=== PATIENT | female | born 1955 | race Caucasian/White ===

== ENCOUNTER → 2018-02-13 | Outpatient (CLI) | payer MEDICAID | LOC: M.RAD 09:39 | DX: Z12.31 Encounter for screening mammogram for malignant neoplasm of breast (principal) ==

== ENCOUNTER → 2018-02-22 | Outpatient (CLI) | payer MEDICAID, MEDICARE | LOC: M.RAD 02-16 14:56 | DX: R92.8 Other abnormal and inconclusive findings on diagnostic imaging of breast (principal) ==

== ENCOUNTER → 2018-08-13 | Outpatient (CLI) | payer MEDICAID, MEDICARE | LOC: M.RAD 08-08 09:29 | DX: R92.1 Mammographic calcification found on diagnostic imaging of breast (principal) ==

== ENCOUNTER → 2019-03-22 | Outpatient (CLI) | payer MEDICARE, MEDICAID | LOC: M.RAD 08:30 | DX: R92.1 Mammographic calcification found on diagnostic imaging of breast (principal) ==

== ENCOUNTER 2021-10-25 12:39 | Inpatient (IN) | payer MEDICARE, MEDICAID ==
[~2021-10-25] VITALS: Ht 154.9 cm; Wt 101.4 kg
[2021-10-25 12:45] VITALS: BP 139/84
[2021-10-25] MEDS ORDERED: LISINOPRIL10 MG PO (12:50)
[2021-10-25] MEDS ORDERED: SERTRALINE HCL100 MG PO (12:50)
[2021-10-25] MEDS ORDERED: MELOXICAM7.5 MG PO (12:50)
[2021-10-25 13:57] LABS: ABSOLUTE MONOCYTES 0.4 thou/uL (0.0-1.2); ABSOLUTE NEUTROPHILS 3.3 thou/uL (1.6-8.1); BASOPHILS 0.5 %; HEMATOCRIT 45.4 % (37.0-47.0); HEMOGLOBIN 15.4 gm/dL (12.0-15.0); LYMPHOCYTES 20.4 %; MCH 28.9 pg (26.0-34.0); MCV 85.2 fL (80.0-100.0); MONOCYTES 9.3 %; MPV 8.5 fl. (7.2-11.1); NUCLEATED RBCS 0 /100WBC; PLATELET COUNT* 152 thou/uL (150-400); POLYS 69.8 %; RBC 5.33 mil/uL (4.20-5.00); RDW-CV 14.2 % (10.5-14.5); WBC 4.7 thou/uL (4.0-11.0)
[2021-10-25 14:06] LABS: CALCIUM 9.2 mg/dL (8.5-10.1); CREATININE 0.9 mg/dL (0.6-1.3); POTASSIUM 3.8 mmol/L (3.5-5.1)
[2021-10-25 14:11] LABS: ALBUMIN 3.7 g/dL (3.4-5.0); TOTAL BILIRUBIN 0.7 mg/dL (<0.1-1.0); TOTAL PROTEIN 7.9 g/dL (6.4-8.2)
--- NOTE | 2021-10-25 15:41 | EKG ---
[place] [address] ELECTROCARDIOGRAM REPORT Name: VESTA RAM Room: [facility]#: [id number] Admission: 10/25/21 Attend Phys: Discharge: Date of : 53 Date of Service: 10/25/21 1421 Report #: [id number] THIS REPORT FOR: //name// [facility] ED Test Date: 2021-10-25 Test Time: 14:21:28 Pat Name: VESTA RAM Department: Room: Gender: F Clerk Manager: : 1955 Requested By: Betito Patino Order Number: [id number] MD: Ramin Welch Measurements Intervals [place] Rate: 93 P: 36 NM: 140 QRS: 21 QRSD: 106 T: 33 QT: 365 QTc: 454 Interpretive Statements Sinus rhythm Probable left atrial enlargement RSR' in V1 or V2, right VCD No previous ECG available for comparison Electronically Signed On 10-25-2021 15:41:06 QUALITY IMPROVEMENT CONSULTANT by Ramin Welch [email or web address] <ELECTRONICALLY SIGNED> By: Ramin Welch MD, [facility] 10/25/21 1541 142 142 Ramin Welch MD, FAC /EPI
[2021-10-25 16:32] LABS: URINE BLOOD TRACE (Negative); URINE CLARITY CLEAR; URINE COLOR YELLOW; URINE GLUCOSE-RANDOM NEGATIVE (Negative); URINE KETONES 2+ (Negative); URINE LEUKOCYTES-REFLEX NEGATIVE (Negative); URINE NITRITE-REFLEX NEGATIVE (Negative); URINE PROTEIN TRACE (Negative); URINE SPECIFIC GRAVITY >= 1.030 (1.005-1.030); URINE UROBILINOGEN 0.2 E.U./dl (0.2-1.0)
[2021-10-25 16:34] LABS: ICTOTEST (BILI CONFIRMATORY) Negative (Negative); URINE BILIRUBIN 1+ (Negative)
[2021-10-25 17:35] LABS: INFLUENZA A ANTIGEN Negative (Negative); INFLUENZA B ANTIGEN Negative (Negative)
[2021-10-25 20:30] VITALS: BP 125/65
[2021-10-26] VITALS (9 sets, daily range): BP systolic 106–161; BP diastolic 56–89
[2021-10-26 05:44] LABS: ABSOLUTE LYMPHOCYTES 0.8 thou/uL (0.8-5.3); ABSOLUTE MONOCYTES 0.3 thou/uL (0.0-1.2); ABSOLUTE NEUTROPHILS 2.1 thou/uL (1.6-8.1); BASOPHILS 0.6 %; HEMATOCRIT 40.8 % (37.0-47.0); LYMPHOCYTES 25.9 %; MCH 28.4 pg (26.0-34.0); MCHC 32.8 g/dL (28.0-37.0); MCV 86.4 fL (80.0-100.0); MPV 7.9 fl. (7.2-11.1); NUCLEATED RBCS 0 /100WBC; PLATELET COUNT* 126 thou/uL (150-400); POLYS 64.5 %; RBC 4.73 mil/uL (4.20-5.00); RDW-CV 14.3 % (10.5-14.5); WBC 3.2 thou/uL (4.0-11.0)
[2021-10-26 05:49] LABS: HEMOGLOBIN 13.4 gm/dL (12.0-15.0)
[2021-10-26 06:30] LABS: CALCIUM 8.5 mg/dL (8.5-10.1); CREATININE 0.8 mg/dL (0.6-1.3); POTASSIUM 3.6 mmol/L (3.5-5.1)
[2021-10-26] MEDS ORDERED: PRAVACHOL 20 MG20 M1 PO (10:28)
[2021-10-27 03:49] VITALS: BP 128/67
[2021-10-27 04:40] LABS: ABSOLUTE LYMPHOCYTES 0.8 thou/uL (0.8-5.3); ABSOLUTE MONOCYTES 0.3 thou/uL (0.0-1.2); ABSOLUTE NEUTROPHILS 3.6 thou/uL (1.6-8.1); BASOPHILS 0.4 %; HEMOGLOBIN 12.9 gm/dL (12.0-15.0); LYMPHOCYTES 17.3 %; MCH 28.5 pg (26.0-34.0); MCHC 33.9 g/dL (28.0-37.0); MCV 83.9 fL (80.0-100.0); MONOCYTES 7.1 %; MPV 8.4 fl. (7.2-11.1); NUCLEATED RBCS 0 /100WBC; PLATELET COUNT* 161 thou/uL (150-400); POLYS 75.2 %; RBC 4.53 mil/uL (4.20-5.00); RDW-CV 13.9 % (10.5-14.5); WBC 4.7 thou/uL (4.0-11.0)
[2021-10-27 05:09] LABS: ALBUMIN 2.6 g/dL (3.4-5.0); CALCIUM 8.7 mg/dL (8.5-10.1); CREATININE 0.7 mg/dL (0.6-1.3); POTASSIUM 3.4 mmol/L (3.5-5.1); TOTAL BILIRUBIN 0.3 mg/dL (<0.1-1.0); TOTAL PROTEIN 5.9 g/dL (6.4-8.2)
[2021-10-27 08:16] VITALS: BP 136/61
[2021-10-27 13:03] VITALS: BP 135/64
[2021-10-27 16:00] VITALS: BP 151/78
[2021-10-27 20:15] VITALS: BP 150/83
[2021-10-27 23:58] VITALS: BP 143/83
[2021-10-28 12:00] VITALS: BP 143/79
[2021-10-28 12:43] LABS: BE 3.3 mmol/L (-2 to +3); PCO2 48.4 mmHg (35.0-45.0); PO2 80.2 mmHg (75.0-100.0); pH 7.398 (7.340-7.450)
[2021-10-28 16:00] VITALS: BP 149/81
[2021-10-28 21:00] VITALS: BP 139/79
[2021-10-29] VITALS: BP 151/84
--- NOTE | 2021-10-29 00:39 | CON ---
[address] [address] CONSULTATION Name: VESTA RAM Room: [address] IN M.R.#: [id number] Admission: 10/25/21 Attend Phys: Hal Chung MD Discharge: Date of : 53 Report #: [id number] THIS REPORT FOR: cc: Cindy Shanks Mischelle RNP Pervez, Adeel MD ~ DATE OF CONSULTATION: 10/28/2021 Consult has been requested by Dr. Brownlee. INDICATION FOR CONSULTATION: Acute hypoxemic respiratory failure secondary to COVID-19, consult requested by Dr. Brownlee. HISTORY OF PRESENT ILLNESS: A 65-year-old female. She does have a history of morbid obesity, body mass index is 44. The patient, however, has not previously diagnosed with a cardiac or respiratory disease other than she does have hypertension as well as hyperlipidemia. The patient is not vaccinated for COVID-19. At this time, the patient is here with COVID-19, there has been a progressive increase in her oxygen needs. Upon admission, she was maintaining O2 saturation on 2 liters nasal cannula, although she was hypoxemic on room air. The patient currently is on BiPAP with 100% FiO2. She has been able to take it off for short periods of time to be able to eat, but otherwise is primarily BiPAP dependent. She is maintaining O2 saturation in the low 90s when she is on the BiPAP. When off the BiPAP, O2 saturations of variable at times maintained in the 90s and at other times desaturation up to the upper 70s have been noted. The patient currently is on BiPAP and is not able to provide a detailed history or review of systems. PAST MEDICAL HISTORY: Hypertension, hyperlipidemia, arthritis. [facility]. [facility] MED[facility]S: [facility]. ALLERGIES: No known drug allergies. FAMILY HISTORY: No pertinent family history. SOCIAL HISTORY: No known history of smoking, ethanol abuse or drug abuse. VACCINATION HISTORY: She has not been vaccinated for COVID-19. PHYSICAL EXAMINATION: [place] [address] CONSULTATION Name: VESTA RAM Room: [address] IN [facility]#: [id number] Admission: 10/25/21 Attend Phys: Hal Chung MD Discharge: Date of : 53 Report #: [id number] GENERAL: She is alert, awake and oriented; however, communication is limited due to BiPAP in place. VITAL SIGNS: Vitals in the records reviewed. BiPAP settings in [facility] reviewed. HEENT: Head is normocephalic and atraumatic. BiPAP in place. NECK: Does not show raised JVP. CHEST: Breath sounds are bilaterally equal. No added sound. Tachypnea noted. HEART: Regular. No murmur. ABDOMEN: Soft and nontender. EXTREMITIES: Lower extremities, trace edema, no calf tenderness. NEUROLOGICAL: No focal deficit. LABORATORY DATA: The patient's chest x-ray as well as x-rays as well as lab work is in [facility] and is reviewed. ASSESSMENT/PLAN: 1. Acute hypoxemic and hypercarbic respiratory failure. BiPAP settings adjusted. We will continue while asleep as well as p.r.n., currently needing while awake as well. If she fails to improve, then she may need intubation; however, we will at this time, attempt to avoid. 2. COVID-19. I increased the dose of dexamethasone to 10 b.i.d. Recommended increase in duration of remdesivir to 10 days, watch LFTs. We will also give one dose of Actemra earlier today. 3. Fluid overload. Recommend diuresing her potassium is 3.4 from yesterday. I went ahead and ordered 40 of Lasix with 100 of Aldactone and also 40 of potassium. We will reassess tomorrow and consider more diuresis. 4. Pulmonary infiltrates. Agree with doxycycline. We will add cefepime. We will do a procalcitonin. We will do sputum culture and nasal swab for MRSA. 5. Bronchospasm. I doubt that she is able to use albuterol inhaler correctly switched over to DuoNeb and also steroid as above. 6. Blood glucose monitoring, the same is ordered with an insulin sliding scale. 7. Deep venous thrombosis prophylaxis. She is on Lovenox low dose, I will increase it to intermediate dose. D-dimer is not significantly elevated, but we will follow trend. 8. Gastrointestinal prophylaxis. She is on Protonix as well as Pepcid. If the only indication is gastrointestinal prophylaxis, then in that case, I recommend continuing Protonix and discontinuing Pepcid. 9. Clostridium difficile prophylaxis, Lactinex. [address] [address] CONSULTATION Name: VESTA RAM Room: [address] IN [place].#: [id number] Admission: 10/25/21 Attend Phys: Hal Chung MD Discharge: Date of : 53 Report #: [id number] The patient is critically ill at this time. Total time spent providing critical care to this patient today exceeds 41 minutes. <ELECTRONICALLY SIGNED> By: Adalid Johnston MD 10/29/21 0039 1725 1959Aalycia Johnston MD /nt
[2021-10-29 04:00] VITALS: BP 144/82
[2021-10-29 05:43] LABS: HEMATOCRIT 40.4 % (37.0-47.0); HEMOGLOBIN 13.7 gm/dL (12.0-15.0); MCH 28.6 pg (26.0-34.0); MCV 84.2 fL (80.0-100.0); MPV 7.7 fl. (7.2-11.1); NUCLEATED RBCS 0 /100WBC; PLATELET COUNT* 216 thou/uL (150-400); RDW-CV 13.8 % (10.5-14.5); WBC 6.3 thou/uL (4.0-11.0)
[2021-10-29 06:56] LABS: ABSOLUTE LYMPHOCYTES 0.5 thou/uL (0.8-5.3); ABSOLUTE MONOCYTES 0.3 thou/uL (0.0-1.2); ABSOLUTE NEUTROPHILS 5.5 thou/uL (1.6-8.1)
[2021-10-29 06:57] LABS: PLATELET ESTIMATE ADEQUATE
[2021-10-29 07:47] LABS: ALBUMIN 2.5 g/dL (3.4-5.0); CALCIUM 9.2 mg/dL (8.5-10.1); CREATININE 0.7 mg/dL (0.6-1.3); MAGNESIUM 2.1 mg/dL (1.8-2.4); POTASSIUM 4.3 mmol/L (3.5-5.1); TOTAL BILIRUBIN 0.5 mg/dL (<0.1-1.0); TOTAL PROTEIN 6.3 g/dL (6.4-8.2)
[2021-10-29 08:00] VITALS: BP 138/78
[2021-10-29 12:00] VITALS: BP 150/74
[2021-10-29 16:00] VITALS: BP 136/72
[2021-10-29 22:20] VITALS: BP 140/76
[2021-10-30] VITALS: BP 134/77
[2021-10-30 04:00] VITALS: BP 132/68
[2021-10-30 08:10] VITALS: BP 113/71
[2021-10-30 11:30] VITALS: BP 112/65
[2021-10-30 11:47] LABS: ABSOLUTE LYMPHOCYTES 0.7 thou/uL (0.8-5.3); ABSOLUTE MONOCYTES 0.5 thou/uL (0.0-1.2); ABSOLUTE NEUTROPHILS 10.1 thou/uL (1.6-8.1); BASOPHILS 0.1 %; HEMATOCRIT 41.4 % (37.0-47.0); HEMOGLOBIN 13.6 gm/dL (12.0-15.0); LYMPHOCYTES 5.9 %; MCH 28.3 pg (26.0-34.0); MCHC 32.8 g/dL (28.0-37.0); MCV 86.3 fL (80.0-100.0); MPV 8.1 fl. (7.2-11.1); NUCLEATED RBCS 0 /100WBC; RBC 4.79 mil/uL (4.20-5.00); RDW-CV 14.2 % (10.5-14.5); WBC 11.2 thou/uL (4.0-11.0)
[2021-10-30 12:03] LABS: PLATELET COUNT* 318 thou/uL (150-400)
[2021-10-30 12:08] LABS: ALBUMIN 2.6 g/dL (3.4-5.0); CALCIUM 9.4 mg/dL (8.5-10.1); CREATININE 0.9 mg/dL (0.6-1.3); MAGNESIUM 2.4 mg/dL (1.8-2.4); POTASSIUM 3.3 mmol/L (3.5-5.1); TOTAL BILIRUBIN 0.5 mg/dL (<0.1-1.0); TOTAL PROTEIN 6.2 g/dL (6.4-8.2)
[2021-10-30 19:00] VITALS: BP 134/75
[2021-10-30 20:00] VITALS: BP 128/72
[2021-10-31 00:19] VITALS: BP 149/75
[2021-10-31 04:35] VITALS: BP 143/78
[2021-10-31 08:07] VITALS: BP 133/74
[2021-10-31 11:16] LABS: ABSOLUTE LYMPHOCYTES 0.7 thou/uL (0.8-5.3); ABSOLUTE MONOCYTES 0.7 thou/uL (0.0-1.2); ABSOLUTE NEUTROPHILS 10.9 thou/uL (1.6-8.1); BASOPHILS 0.2 %; EOSINOPHILS 0.1 %; HEMATOCRIT 41.6 % (37.0-47.0); HEMOGLOBIN 13.6 gm/dL (12.0-15.0); LYMPHOCYTES 5.7 %; MCH 28.4 pg (26.0-34.0); MCHC 32.8 g/dL (28.0-37.0); MCV 86.4 fL (80.0-100.0); MPV 8.1 fl. (7.2-11.1); NUCLEATED RBCS 0 /100WBC; PLATELET COUNT* 327 thou/uL (150-400); RBC 4.81 mil/uL (4.20-5.00); RDW-CV 13.9 % (10.5-14.5); WBC 12.4 thou/uL (4.0-11.0)
[2021-10-31 11:35] LABS: ALBUMIN 2.8 g/dL (3.4-5.0); CALCIUM 9.4 mg/dL (8.5-10.1); CREATININE 0.9 mg/dL (0.6-1.3); MAGNESIUM 2.2 mg/dL (1.8-2.4); POTASSIUM 4.5 mmol/L (3.5-5.1); TOTAL BILIRUBIN 0.5 mg/dL (<0.1-1.0); TOTAL PROTEIN 5.9 g/dL (6.4-8.2)
[2021-10-31 13:24] VITALS: BP 111/59
[2021-10-31 16:33] VITALS: BP 138/74
[2021-10-31 21:50] VITALS: BP 126/77
[2021-11-01] VITALS (21 sets, daily range): BP systolic 11–1150; BP diastolic 30–85
[2021-11-01 04:29] LABS: HEMATOCRIT 45.1 % (37.0-47.0); MCH 28.4 pg (26.0-34.0); MCHC 33.3 g/dL (28.0-37.0); MCV 85.3 fL (80.0-100.0); MPV 7.9 fl. (7.2-11.1); NUCLEATED RBCS 0 /100WBC; PLATELET COUNT* 362 thou/uL (150-400); RBC 5.28 mil/uL (4.20-5.00); RDW-CV 13.6 % (10.5-14.5); WBC 15.3 thou/uL (4.0-11.0)
[2021-11-01 04:44] LABS: CALCIUM 9.7 mg/dL (8.5-10.1); CREATININE 0.9 mg/dL (0.6-1.3); MAGNESIUM 2.5 mg/dL (1.8-2.4); POTASSIUM 4.4 mmol/L (3.5-5.1); TOTAL BILIRUBIN 0.7 mg/dL (<0.1-1.0); TOTAL PROTEIN 6.7 g/dL (6.4-8.2)
[2021-11-01 07:11] LABS: ABSOLUTE LYMPHOCYTES 0.6 thou/uL (0.8-5.3); ABSOLUTE MONOCYTES 1.1 thou/uL (0.0-1.2); ABSOLUTE NEUTROPHILS 13.6 thou/uL (1.6-8.1)
[2021-11-01 07:12] LABS: PLATELET ESTIMATE ADEQUATE
[2021-11-01 08:57] LABS: BE 4.1 mmol/L (-2 to +3); PCO2 42.4 mmHg (35.0-45.0); pH 7.447 (7.340-7.450)
[2021-11-01 08:59] LABS: PO2 55.3 mmHg (75.0-100.0)
[2021-11-01 19:47] LABS: BE 2.4 mmol/L (-2 to +3); PCO2 47.5 mmHg (35.0-45.0); PO2 61.3 mmHg (75.0-100.0); pH 7.392 (7.340-7.450)
[2021-11-02] VITALS (47 sets, daily range): BP systolic 10–185; BP diastolic 47–92
[2021-11-02 04:31] LABS: HEMATOCRIT 47.2 % (37.0-47.0); HEMOGLOBIN 15.9 gm/dL (12.0-15.0); MCH 28.1 pg (26.0-34.0); MCHC 33.7 g/dL (28.0-37.0); MCV 83.5 fL (80.0-100.0); MPV 8.1 fl. (7.2-11.1); NUCLEATED RBCS 0 /100WBC; PLATELET COUNT* 435 thou/uL (150-400); RBC 5.66 mil/uL (4.20-5.00); RDW-CV 14.1 % (10.5-14.5); WBC 26.9 thou/uL (4.0-11.0)
[2021-11-02 05:15] LABS: CALCIUM 9.5 mg/dL (8.5-10.1); CREATININE 1.5 mg/dL (0.6-1.3); MAGNESIUM 2.5 mg/dL (1.8-2.4); POTASSIUM 4.2 mmol/L (3.5-5.1); TOTAL BILIRUBIN 0.9 mg/dL (<0.1-1.0); TOTAL PROTEIN 6.6 g/dL (6.4-8.2)
[2021-11-02 05:57] LABS: PHOSPHORUS* 5.8 mg/dL (2.5-4.9)
[2021-11-02 07:54] LABS: ABSOLUTE LYMPHOCYTES 1.9 thou/uL (0.8-5.3); ABSOLUTE MONOCYTES 0.3 thou/uL (0.0-1.2); ABSOLUTE NEUTROPHILS 24.7 thou/uL (1.6-8.1); PLATELET ESTIMATE ADEQUATE
[2021-11-02 09:05] LABS: BE -0.7 mmol/L (-2 to +3); PCO2 43.7 mmHg (35.0-45.0); PO2 87.8 mmHg (75.0-100.0); pH 7.372 (7.340-7.450)
[2021-11-02 17:30] LABS: CALCIUM 9.1 mg/dL (8.5-10.1); CREATININE 1.5 mg/dL (0.6-1.3); POTASSIUM 4.3 mmol/L (3.5-5.1)
[2021-11-03] VITALS (41 sets, daily range): BP systolic 79–152; BP diastolic 42–70
[2021-11-03 04:48] LABS: ABSOLUTE LYMPHOCYTES 0.7 thou/uL (0.8-5.3); ABSOLUTE MONOCYTES 1.3 thou/uL (0.0-1.2); ABSOLUTE NEUTROPHILS 19.1 thou/uL (1.6-8.1); BASOPHILS 0.1 %; HEMATOCRIT 40.8 % (37.0-47.0); LYMPHOCYTES 3.5 %; MCH 27.6 pg (26.0-34.0); MCHC 32.1 g/dL (28.0-37.0); MCV 85.9 fL (80.0-100.0); MONOCYTES 6.4 %; MPV 8.7 fl. (7.2-11.1); NUCLEATED RBCS 0 /100WBC; RBC 4.75 mil/uL (4.20-5.00); RDW-CV 14.3 % (10.5-14.5); WBC 21.2 thou/uL (4.0-11.0)
[2021-11-03 05:04] LABS: ALBUMIN 2.3 g/dL (3.4-5.0); CALCIUM 8.4 mg/dL (8.5-10.1); CREATININE 1.1 mg/dL (0.6-1.3); MAGNESIUM 2.3 mg/dL (1.8-2.4); POTASSIUM 3.9 mmol/L (3.5-5.1); TOTAL BILIRUBIN 0.5 mg/dL (<0.1-1.0); TOTAL PROTEIN 5.3 g/dL (6.4-8.2)
[2021-11-03 05:20] LABS: PHOSPHORUS* 3.4 mg/dL (2.5-4.9)
[2021-11-03 05:29] LABS: HEMOGLOBIN 13.1 gm/dL (12.0-15.0); PLATELET COUNT* 350 thou/uL (150-400)
[2021-11-03 08:34] LABS: BE 1.3 mmol/L (-2 to +3); PCO2 49.8 mmHg (35.0-45.0); PO2 76.9 mmHg (75.0-100.0); pH 7.362 (7.340-7.450)
[2021-11-04] VITALS (35 sets, daily range): BP systolic 104–133; BP diastolic 53–68
[2021-11-04 04:32] LABS: ABSOLUTE EOSINOPHILS 0.1 thou/uL (0.0-0.7); ABSOLUTE LYMPHOCYTES 0.6 thou/uL (0.8-5.3); ABSOLUTE MONOCYTES 0.8 thou/uL (0.0-1.2); ABSOLUTE NEUTROPHILS 15.8 thou/uL (1.6-8.1); BASOPHILS 0.1 %; EOSINOPHILS 0.3 %; HEMATOCRIT 38.5 % (37.0-47.0); HEMOGLOBIN 12.5 gm/dL (12.0-15.0); LYMPHOCYTES 3.3 %; MCH 28.2 pg (26.0-34.0); MCHC 32.4 g/dL (28.0-37.0); MCV 87.1 fL (80.0-100.0); MONOCYTES 4.4 %; MPV 8.7 fl. (7.2-11.1); NUCLEATED RBCS 0 /100WBC; POLYS 91.9 %; RBC 4.42 mil/uL (4.20-5.00); RDW-CV 14.6 % (10.5-14.5); WBC 17.2 thou/uL (4.0-11.0)
[2021-11-04 05:03] LABS: PLATELET COUNT* 221 thou/uL (150-400)
[2021-11-04 05:05] LABS: ALBUMIN 2.7 g/dL (3.4-5.0); CALCIUM 9.3 mg/dL (8.5-10.1); CREATININE 1.4 mg/dL (0.6-1.3); MAGNESIUM 2.7 mg/dL (1.8-2.4); POTASSIUM 5.4 mmol/L (3.5-5.1); TOTAL BILIRUBIN 0.6 mg/dL (<0.1-1.0); TOTAL PROTEIN 5.5 g/dL (6.4-8.2)
[2021-11-04 08:30] LABS: BE -4.2 mmol/L (-2 to +3); PCO2 45.9 mmHg (35.0-45.0); PO2 83.9 mmHg (75.0-100.0); pH 7.303 (7.340-7.450)
--- NOTE | 2021-11-04 15:36 | 2DMMODE ---
[place] [address] 2 D/M-MODE ECHOCARDIOGRAM Name: VESTA RAM Room: [address] IN .R.#: [id number] Admission: 10/25/21 Attend Phys: Hal Chung, Discharge: Date of : 53 Date of Service: 11/04/21 1535 Report #: [id number] THIS REPORT FOR: cc: Cindy Shanks Mischelle RNP Liston, Michael J. MD [facility] ~ APPROVED REPORT Study performed: 11/04/2021 14:31:44 EXAM: Comprehensive 2D, Doppler, and color-flow Echocardiogram Patient Location: Bedside BSA: 1.98 HR: 93 bpm BP: 137/56 mmHg Other Information Study Quality: Adequate Technically limited study due to body habitus, inability to position patient, patient on ventilator. Indications Dyspnea Covid 2D Dimensions IVSd: 11.49 (7-11mm) LVOT Diam: 17.93 (18-24mm) LVDd: 43.02 mm PWd: 10.54 (7-11mm) Ascending Ao: 27.26 (22-36mm) LVDs: 29.77 (25-40mm) Aortic Root: 27.53 mm Volumes Left Atrial Volume (Systole) LA ESV Index: 20.80 mL/m2 Aortic Valve AoV Peak Ramón.: 1.18 m/s AO Peak Gr.: 5.55 mmHg LVOT Max P.41 mmHg AO Mean Gr.: 3.03 mmHg LVOT Mean P.10 mmHg LVOT Max V: 0.78 m/s AO V2 VTI: 29.27 cm LVOT Mean V: 0.48 m/s HOLLIE (VTI): 1.21 cm2 LVOT V1 VTI: 14.05 [place] [address] 2 D/M-MODE ECHOCARDIOGRAM Name: VESTA RAM Room: [address] IN [facility].#: [id number] Admission: 10/25/21 Attend Phys: Hal Chung, Discharge: Date of : 53 Date of Service: 11/04/21 1535 Report #: [id number] Mitral Valve E/A Ratio: 0.70 MV Decel. Time: 184.40 ms MV E Max Ramón.: 0.75 m/s MV PHT: 53.48 ms MVA (PHT): 4.11 cm2 TDI E/Lateral E': 9.38 Lateral E' Ramón.: 0.08 m/s Pulmonary Valve PV Peak Ramón.: 0.96 m/s PV Peak Gr.: 3.71 mmHg Tricuspid Valve RAP Estimate: 10.00 mmHg TR Peak Gr.: 33.85 mmHg RVSP: 43.85 mmHg PA Pressure: 43.85 mmHg Left Ventricle The left ventricle is normal size. There is normal LV segmental wall motion. There is normal left ventricular wall thickness. Left ventricular systolic function is normal. LVEF is 60-65%. Grade I - abnormal relaxation pattern. Right Ventricle The right ventricle is normal size. The right ventricular systolic function is normal. Atria The left atrium size is normal. The right atrium size is normal. Aortic Valve The aortic valve is normal in structure. No aortic regurgitation is present. There is no aortic valvular stenosis. Mitral Valve The mitral valve is normal in structure. Trace mitral regurgitation. No evidence of mitral valve stenosis. Tricuspid Valve The tricuspid valve is normal in structure. Mild tricuspid regurgitation. The RVSP is 35-[place] [address] 2 D/M-MODE ECHOCARDIOGRAM Name: LEANNAVESTADONA CHO Room: [address] IN [facility]#: [id number] Admission: 10/25/21 Attend Phys: Hal Chung, Discharge: Date of : 53 Date of Service: 11/04/21 1535 Report #: [id number] Pulmonic Valve The pulmonary valve is normal in structure. There is no pulmonic valvular regurgitation. Great Vessels The aortic root is normal in size. IVC is normal in size and collapses >50% with inspiration. Pericardium There is no pericardial effusion. <Conclusion> The left ventricle is normal size. There is normal left ventricular wall thickness. Left ventricular systolic function is normal. LVEF is 60-65%. Grade I - abnormal relaxation pattern. Trace mitral regurgitation. Mild tricuspid regurgitation. The RVSP is 35-40 mmHg. IVC is normal in size and collapses >50% with inspiration. <ELECTRONICALLY SIGNED> By: Jonathan Springer MD, [facility] 11/04/21 1535 1535 1535 Jonathan Springer MD, FACC /INF
[2021-11-04 20:09] LABS: CALCIUM 9.3 mg/dL (8.5-10.1); CREATININE 1.2 mg/dL (0.6-1.3); MAGNESIUM 2.7 mg/dL (1.8-2.4); POTASSIUM 5.5 mmol/L (3.5-5.1)
[2021-11-05] VITALS (29 sets, daily range): BP systolic 102–144; BP diastolic 50–74
[2021-11-05 05:30] LABS: ABSOLUTE EOSINOPHILS 0.2 thou/uL (0.0-0.7); ABSOLUTE LYMPHOCYTES 0.7 thou/uL (0.8-5.3); ABSOLUTE MONOCYTES 0.6 thou/uL (0.0-1.2); ABSOLUTE NEUTROPHILS 15.3 thou/uL (1.6-8.1); BASOPHILS 0.3 %; HEMATOCRIT 40.4 % (37.0-47.0); LYMPHOCYTES 4.3 %; MCHC 32.2 g/dL (28.0-37.0); MCV 87.2 fL (80.0-100.0); MONOCYTES 3.7 %; MPV 9.5 fl. (7.2-11.1); NUCLEATED RBCS 0 /100WBC; PLATELET COUNT* 202 thou/uL (150-400); POLYS 90.7 %; RBC 4.63 mil/uL (4.20-5.00); RDW-CV 14.3 % (10.5-14.5); WBC 16.9 thou/uL (4.0-11.0)
[2021-11-05 06:44] LABS: ALBUMIN 2.7 g/dL (3.4-5.0); CALCIUM 9.7 mg/dL (8.5-10.1); CREATININE 1.1 mg/dL (0.6-1.3); POTASSIUM 5.5 mmol/L (3.5-5.1); TOTAL BILIRUBIN 0.5 mg/dL (<0.1-1.0); TOTAL PROTEIN 5.6 g/dL (6.4-8.2)
[2021-11-05 10:42] LABS: BE -4.8 mmol/L (-2 to +3); PCO2 48.3 mmHg (35.0-45.0); PO2 67.3 mmHg (75.0-100.0)
[2021-11-05 10:45] LABS: pH 7.279 (7.340-7.450)
[2021-11-06] VITALS (37 sets, daily range): BP systolic 103–198; BP diastolic 52–82
[2021-11-06 04:36] LABS: ABSOLUTE EOSINOPHILS 0.2 thou/uL (0.0-0.7); ABSOLUTE LYMPHOCYTES 0.6 thou/uL (0.8-5.3); ABSOLUTE MONOCYTES 0.7 thou/uL (0.0-1.2); ABSOLUTE NEUTROPHILS 16.2 thou/uL (1.6-8.1); BASOPHILS 0.1 %; EOSINOPHILS 0.9 %; LYMPHOCYTES 3.4 %; MCH 27.9 pg (26.0-34.0); MCHC 31.8 g/dL (28.0-37.0); MCV 87.7 fL (80.0-100.0); MONOCYTES 3.7 %; NUCLEATED RBCS 0 /100WBC; PLATELET COUNT* 188 thou/uL (150-400); POLYS 91.9 %; RBC 4.67 mil/uL (4.20-5.00); RDW-CV 14.5 % (10.5-14.5); WBC 17.7 thou/uL (4.0-11.0)
[2021-11-06 05:28] LABS: ALBUMIN 2.6 g/dL (3.4-5.0); CALCIUM 9.6 mg/dL (8.5-10.1); CREATININE 0.9 mg/dL (0.6-1.3); POTASSIUM 5.3 mmol/L (3.5-5.1); TOTAL BILIRUBIN 0.4 mg/dL (<0.1-1.0); TOTAL PROTEIN 5.5 g/dL (6.4-8.2)
[2021-11-06 10:37] LABS: BE -0.3 mmol/L (-2 to +3); PCO2 46.9 mmHg (35.0-45.0); PO2 60.7 mmHg (75.0-100.0); pH 7.355 (7.340-7.450)
[2021-11-07] VITALS (59 sets, daily range): BP systolic 78–214; BP diastolic 48–91
[2021-11-07 04:56] LABS: HEMATOCRIT 38.1 % (37.0-47.0); HEMOGLOBIN 12.2 gm/dL (12.0-15.0); MCH 28.1 pg (26.0-34.0); MCHC 31.9 g/dL (28.0-37.0); MPV 9.5 fl. (7.2-11.1); NUCLEATED RBCS 0 /100WBC; PLATELET COUNT* 154 thou/uL (150-400); RBC 4.33 mil/uL (4.20-5.00); RDW-CV 14.5 % (10.5-14.5); WBC 15.9 thou/uL (4.0-11.0)
[2021-11-07 06:00] LABS: PREALBUMIN 23.3 mg/dL (18.0-35.7)
[2021-11-07 06:03] LABS: ALBUMIN 2.3 g/dL (3.4-5.0); CALCIUM 9.2 mg/dL (8.5-10.1); CREATININE 0.7 mg/dL (0.6-1.3); POTASSIUM 4.9 mmol/L (3.5-5.1); TOTAL BILIRUBIN 0.4 mg/dL (<0.1-1.0); TOTAL PROTEIN 5.2 g/dL (6.4-8.2)
[2021-11-07 06:53] LABS: ABSOLUTE EOSINOPHILS 0.2 thou/uL (0.0-0.7); ABSOLUTE LYMPHOCYTES 0.5 thou/uL (0.8-5.3); ABSOLUTE MONOCYTES 0.2 thou/uL (0.0-1.2); ABSOLUTE NEUTROPHILS 15.1 thou/uL (1.6-8.1); PLATELET ESTIMATE ADEQUATE
[2021-11-07 10:50] LABS: BE -0.4 mmol/L (-2 to +3)
[2021-11-07 10:52] LABS: PO2 59.2 mmHg (75.0-100.0)
[2021-11-08] VITALS (42 sets, daily range): BP systolic 110–185; BP diastolic 68–99
[2021-11-08 04:40] LABS: ABSOLUTE BASOPHILS 0.1 thou/uL (0.0-0.2); ABSOLUTE EOSINOPHILS 0.1 thou/uL (0.0-0.7); ABSOLUTE LYMPHOCYTES 0.7 thou/uL (0.8-5.3); ABSOLUTE MONOCYTES 0.7 thou/uL (0.0-1.2); ABSOLUTE NEUTROPHILS 17.9 thou/uL (1.6-8.1); BASOPHILS 0.3 %; EOSINOPHILS 0.3 %; HEMATOCRIT 40.5 % (37.0-47.0); HEMOGLOBIN 13.1 gm/dL (12.0-15.0); LYMPHOCYTES 3.6 %; MCH 28.1 pg (26.0-34.0); MCHC 32.4 g/dL (28.0-37.0); MCV 86.7 fL (80.0-100.0); MONOCYTES 3.5 %; NUCLEATED RBCS 0 /100WBC; PLATELET COUNT* 191 thou/uL (150-400); POLYS 92.3 %; RBC 4.67 mil/uL (4.20-5.00); RDW-CV 14.4 % (10.5-14.5); WBC 19.4 thou/uL (4.0-11.0)
[2021-11-08 05:10] LABS: ALBUMIN 2.6 g/dL (3.4-5.0); CALCIUM 9.4 mg/dL (8.5-10.1); CREATININE 0.8 mg/dL (0.6-1.3); TOTAL BILIRUBIN 0.5 mg/dL (<0.1-1.0)
[2021-11-08 09:29] LABS: BE 2.6 mmol/L (-2 to +3); PCO2 47.9 mmHg (35.0-45.0); PO2 71.6 mmHg (75.0-100.0)
[2021-11-08 09:41] LABS: CALCIUM 9.6 mg/dL (8.5-10.1); CREATININE 0.8 mg/dL (0.6-1.3); POTASSIUM 5.5 mmol/L (3.5-5.1)
[2021-11-08 17:46] LABS: CALCIUM 9.9 mg/dL (8.5-10.1); CREATININE 0.9 mg/dL (0.6-1.3); POTASSIUM 4.9 mmol/L (3.5-5.1)
[2021-11-09] VITALS (25 sets, daily range): BP systolic 123–169; BP diastolic 72–100
[2021-11-09 04:46] LABS: ABSOLUTE EOSINOPHILS 0.1 thou/uL (0.0-0.7); ABSOLUTE LYMPHOCYTES 0.7 thou/uL (0.8-5.3); ABSOLUTE MONOCYTES 0.6 thou/uL (0.0-1.2); ABSOLUTE NEUTROPHILS 12.9 thou/uL (1.6-8.1); BASOPHILS 0.4 %; EOSINOPHILS 0.4 %; LYMPHOCYTES 4.6 %; MCH 28.1 pg (26.0-34.0); MCHC 32.5 g/dL (28.0-37.0); MCV 86.6 fL (80.0-100.0); MONOCYTES 4.3 %; MPV 9.1 fl. (7.2-11.1); NUCLEATED RBCS 0 /100WBC; PLATELET COUNT* 171 thou/uL (150-400); POLYS 90.3 %; RBC 4.62 mil/uL (4.20-5.00); RDW-CV 14.3 % (10.5-14.5); WBC 14.2 thou/uL (4.0-11.0)
[2021-11-09 05:01] LABS: APTT 29.1 Seconds (25.0-31.3); INR 1.2; PROTIME 12.3 Seconds (9.20-11.50)
[2021-11-09 05:03] LABS: ALBUMIN 3.1 g/dL (3.4-5.0); CALCIUM 9.6 mg/dL (8.5-10.1); CREATININE 0.8 mg/dL (0.6-1.3); MAGNESIUM 2.3 mg/dL (1.8-2.4); POTASSIUM 4.4 mmol/L (3.5-5.1); TOTAL BILIRUBIN 0.5 mg/dL (<0.1-1.0); TOTAL PROTEIN 6.2 g/dL (6.4-8.2)
[2021-11-09 08:12] LABS: BE 5.8 mmol/L (-2 to +3); PCO2 45.9 mmHg (35.0-45.0); PO2 60.1 mmHg (75.0-100.0); pH 7.444 (7.340-7.450)
[2021-11-10] VITALS (22 sets, daily range): BP systolic 125–158; BP diastolic 76–93
[2021-11-11] VITALS (8 sets, daily range): BP systolic 154–177; BP diastolic 74–99
[2021-11-11 04:25] LABS: HEMATOCRIT 39.1 % (37.0-47.0); HEMOGLOBIN 12.8 gm/dL (12.0-15.0); MCH 28.6 pg (26.0-34.0); MCHC 32.6 g/dL (28.0-37.0); MCV 87.5 fL (80.0-100.0); MPV 9.4 fl. (7.2-11.1); RBC 4.47 mil/uL (4.20-5.00); RDW-CV 14.2 % (10.5-14.5); WBC 15.7 thou/uL (4.0-11.0)
[2021-11-11 04:48] LABS: ALBUMIN 2.8 g/dL (3.4-5.0); CALCIUM 9.5 mg/dL (8.5-10.1); CREATININE 0.8 mg/dL (0.6-1.3); MAGNESIUM 2.1 mg/dL (1.8-2.4); POTASSIUM 4.9 mmol/L (3.5-5.1); TOTAL BILIRUBIN 0.6 mg/dL (<0.1-1.0); TOTAL PROTEIN 6.2 g/dL (6.4-8.2)
== END 2021-11-11 16:55 | DRG 870 ==
LOC: M.ERS 12:39 → M.ICU 15:28 → M.TBA-ER 15:28 → M.ORTHSURG 10-26 08:53 → M.ICU 11-02 21:25 → M.ORTHSURG 11-10 16:17
PROVIDERS: Emergency Medicine Emergency Medical Services; Internal Medicine; Internal Medicine Critical Care Medicine; Pediatrics; ADMIT Internal Medicine; ATTEND Internal Medicine
DX: A41.89 Other specified sepsis (principal); U07.1 COVID-19; J12.82 Pneumonia due to coronavirus disease 2019; J80 Acute respiratory distress syndrome; Z68.41 Body mass index [BMI] 40.0-44.9, adult; E44.1 Mild protein-calorie malnutrition; E66.2 Morbid (severe) obesity with alveolar hypoventilation; R57.9 Shock, unspecified; E87.1 Hypo-osmolality and hyponatremia; I10 Essential (primary) hypertension; E78.5 Hyperlipidemia, unspecified; M19.90 Unspecified osteoarthritis, unspecified site; E87.70 Fluid overload, unspecified; J98.01 Acute bronchospasm; R63.0 Anorexia; K59.00 Constipation, unspecified; Z51.5 Encounter for palliative care